=== PATIENT | female | born 1990 | race Caucasian/White ===

== ENCOUNTER 2020-05-19 02:02 | Emergency (ER) | payer BC, SELFPAY ==
[2020-05-19 02:06] VITALS: BP 120/73; PULSE 83; RESP 18; TEMP 36.6; O2SAT 100
[2020-05-19 02:35] LABS: Basophils Absolute Auto 0.1 K/mm3 (0.0-0.1); Basophils Percent Auto 0.4 % (0.2-1.2); Eosinophils Absolute Auto 0.2 K/mm3 (0-0.3); Eosinophils Percent Auto 1.5 % (0-4.4); Hematocrit 41.5 % (37.0-47.0); Hemoglobin 14.5 g/dL (12.0-15.0); Immature Granulocyte Absolute 0.04 K/mm3 (0.00-0.031); Immature Granulocyte Percent A 0.3 % (0-0.5); Lymphocytes Absolute Auto 3.32 K/mm3 (0.9-3.2); Lymphocytes Percent Auto 24.3 % (18.3-44.2); Mean Corpuscular HGB Conc 34.9 g/dl (32-36); Mean Corpuscular Hemoglobin 32.2 pg (26-34); Mean Corpuscular Volume 92.2 fl (80-100); Mean Platelet Volume 9.3 fl (7.4-10.4); Monocytes Absolute Auto 1.2 K/mm3 (0.1-0.6); Monocytes Percent Auto 8.4 % (2.6-8.5); Neutrophils Absolute Auto 8.9 K/mm3 (1.3-6.7); Neutrophils Percent Auto 65.1 % (45.5-73.1); Platelet Count Result 232 k/mm3 (150-375); Red Cell Distribution Width 11.5 % (11.5-14.5); White Blood Count 13.7 K/mm3 (4.5-10.0)
[2020-05-19 02:39] LABS: Add Urine Microscopic? YES; Appearance Urine Clear (Clear); Bacteria Urine Trace /hpf; Bilirubin Urine Negative (Negative); Blood Urine Negative (Negative); Color Urine Yellow (Yellow); Glucose Urine UA Negative (Negative); Ketones Urine Negative (Negative); Leukocyte Esterase Ur Trace LEU/UL (Negative); Mucus Urine Rare /lpf; Nitrate Urine Negative (Negative); Protein Urine Negative (Negative); RBC Urine 0-2 /hpf (0-2); Specific Grav Ur 1.019 (1.001-1.035); Squamous Epithelial Cell Urine Many /hpf (Few); Urobilinogen Urine Negative mg/dL (<2.0); WBC Urine 0-3 /hpf
[2020-05-19 02:51] LABS: Alanine Aminotransferase 12 U/L (4-35); Albumin Level 4.4 g/dL (3.5-5.1); Alkaline Phosphatase 82 U/L (38-126); Aspartate Amino Transferase 17 U/L (14-36); Bilirubin,Total 0.4 mg/dL (0.2-1.3); Blood Urea Nitrogen 17 mg/dL (7-17); Carbon Dioxide 26 mmol/L (22-30); Chloride 103 mmol/L (98-107); Estimated Glomerular Filt Rate > 60; Glucose 96 mg/dL (65-105); Lipase 127 U/L (23-300); Sodium 137 mmol/L (137-145)
[2020-05-19] MEDS: KETOROLAC 30 MG/ML VIAL (*BKC) IV PUSH (03:08)
[2020-05-19 04:29] VITALS: BP 107/69; PULSE 70; RESP 18; O2SAT 99
--- NOTE | 2020-05-19 04:32 | ED.ABDPAIN ---
HPI - Abdominal Pain General Chief Complaint: Abdominal Pain Stated Complaint: abd pain Time Seen by Provider: 05/19/20 02:29 History of Present Illness HPI narrative: Patient is a 29-year-old female who presents ER with lower abdominal pain. Began earlier in the evening. Is cramping and in the midline over suprapubic region. No urinary frequency urgency. She is without dysuria. She has had no diarrhea. No bloating/nausea/vomiting. She is on no aggravating or alleviating factors. She reports she is sexually active but does not feel she is at risk for STDs. She has her normal vaginal discharge and is without any bleeding. Related Data Home Medications Medication Instructions Recorded Confirmed albuterol sulfate INHALATION 05/19/20 escitalopram oxalate 5 mg PO DAILY 05/19/20 Allergies Allergy/AdvReac Type Severity Reaction Status Date / Time No Known Allergies Allergy Verified 05/19/20 02:21 Review of Systems Review of Systems: All systems reviewed & are unremarkable except as noted in HPI and below Constitutional: Constitutional: Denies chills, Denies fever(s) and Denies weakness Gastrointestinal: Gastrointestinal: Reports abdominal pain, Denies diarrhea, Denies nausea and Denies vomiting Genitourinary: Genitourinary: Denies abnormal vaginal bleeding, Denies nocturia, Denies dysuria and Denies vaginal discharge [facility] Past Medical History Medical History (Updated 05/19/20 @ 04:37 by Usman Wright MD) No pertinent past medical history Surgical History Surgical History (Updated 05/19/20 @ 04:34 by Usman Wright MD) No pertinent past surgical history Social History Social History (Updated 05/19/20 @ 04:34 by Usman Wright MD) Smoking status: Never smoker Gender identity (if verbalized by the patient): Female Exam Narrative: Exam Narrative: GENERAL: Well-appearing, well-nourished, and in no acute distress. HEAD: Normocephalic, atraumatic. ENT: Mucous membranes moist. CHEST: Clear to auscultation. No respiratory distress. HEART: Regular rate and rhythm. Normal peripheral pulses. ABDOMEN: Soft, mild suprapubic discomfort, nondistended, normal active bowel sounds. EXTREMITIES: Normal range of motion. No edema. NEURO: Alert and oriented x3. PSYCH: Normal mood and affect. Course Course Emergency Course: Pain resolved with Toradol. Discharge home. Vital Signs Vital signs: Vital Signs Temperature 97.9 F 05/19/20 02:06 Pulse Rate 83 05/19/20 02:06 Respiratory Rate 18 05/19/20 02:06 Blood Pressure 120/73 05/19/20 02:06 Pulse Oximetry 100 05/19/20 02:06 Temperature 97.9 F 05/19/20 02:06 Pulse Rate 70 05/19/20 04:29 Respiratory Rate 18 05/19/20 04:29 Blood Pressure 107/69 05/19/20 04:29 Pulse Oximetry 99 05/19/20 04:29 MDM - Abdominal Pain Lab Data Result diagrams: 05/19/20 02:29 05/19/20 02:29 Labs: Lab Results 05/19/20 05/19/20 05/19/20 Range/Units 02:28 02:29 02:29 WBC 13.7 H (4.5-10.0) K/mm3 RBC 4.50 (4.2-5.4) M/mm3 Hgb 14.5 (12.0-15.0) g/dL Hct 41.5 (37.0-47.0) % MCV 92.2 (80-100) fl MCH 32.2 (26-34) pg MCHC 34.9 (32-36) g/dl RDW 11.5 (11.5-14.5) % Plt Count 232 (150-375) k/mm3 MPV 9.3 (7.4-10.4) fl Immature Gran % (Auto) 0.3 (0-0.5) % Neut % (Auto) 65.1 (45.5-73.1) % Lymph % (Auto) 24.3 (18.3-44.2) % [place] % (Auto) 8.4 (2.6-8.5) % Eos % (Auto) 1.5 (0-4.4) % Baso % (Auto) 0.4 (0.2-1.2) % Lymph # (Auto) 3.32 H (0.9-3.2) K/mm3 [place] # (Auto) 1.2 H (0.1-0.6) K/mm3 Eos # (Auto) 0.2 (0-0.3) K/mm3 Baso # (Auto) 0.1 (0.0-0.1) K/mm3 Abs Immat Gran (auto) 0.04 H (0.00-0.031) K/mm3 Absolute Neuts (auto) 8.9 H (1.3-6.7) K/mm3 Absolute Nucleated RBC 0.0 (0.0-0.012) K/mm3 Nucleated RBC % 0.0 (0.0-0.2) % Sodium 137 (137-145) mmol/L Potassium 4.0 (3.4-5.0) mmol/L Chloride
== END 2020-05-19 04:53 | disposition home or self-care (01) ==
PROVIDERS: Emergency Provider Emergency Medicine
DX: R10.30 Lower abdominal pain, unspecified (principal)
CPT/HCPCS: 36415; 80053; 81001; 81025; 83690; 85025; 96374; 99284; J1885